=== PATIENT | female | born 2000 | race African-American/Black ===

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

== ENCOUNTER 2022-03-01 20:07 | Emergency (ER) | payer MEDICAID ==
[~2022-03-01] VITALS: Ht 175.3 cm; Wt 109.1 kg
[~2022-03-01 20:07] MED LIST changes: +NAPROXEN DR500 MG PO
[2022-03-01 20:26] VITALS: BP 145/75
[2022-03-01 21:08] LABS: HEMOGLOBIN 11.6 g/dl (12.0-16.0); IMMATURE GRANULOCYTES 0.1 % (0.0-5.0); MEAN CORPUSCULAR HGB 28.1 pG CALC (26.0-32.0); MEAN CORPUSCULAR HGB CONC 31.4 g/dL CAL (32.0-36.0); NEUT# 8.91 thou/uL (2.00-7.15); RED BLOOD COUNT 4.13 mill/uL (4.20-5.60); RED CELL DISTRI WIDTH 14.7 % (11.5-15.5)
[2022-03-01 21:22] LABS: MEAN CELL VOLUME 89.6 fL CALC (80.0-100.0)
[2022-03-01] MEDS ORDERED: AMOXICILLIN500 M2 PO (21:45)
[2022-03-01 22:07] VITALS: BP 145/75
== END 2022-03-01 22:14 | disposition home or self-care (01) ==
LOC: ED 20:07
PROVIDERS: Family Medicine
DX: J03.90 Acute tonsillitis, unspecified (principal); Z20.822 Contact with and (suspected) exposure to COVID-19